=== PATIENT | male | born 1975 | race Caucasian/White ===

== ENCOUNTER → 2022-05-13 08:46 | Outpatient (BNVA) | payer OTHER, SELFPAY | PROVIDERS: PCP Nurse Practitioner Family; Visit Provider Student in an Organized Health Care Education/Training Program | DX: Z13.89 Encounter for screening for other disorder (principal) ==

== ENCOUNTER 2022-10-21 10:10 | Outpatient (AMB) | payer OTHER, SELFPAY ==
[2022-10-21 10:12] VITALS: BP 164/88; PULSE 92; TEMP 36.1; O2SAT 98; BMI 38.5
--- NOTE | 2022-10-21 10:12 | MHC.OFFVIS ---
Intake Vital Signs 10/21/22 10:12 Height 6 ft 4 in Weight 316 lb 2.286 oz BMI 38.5 BP 164/88 H Blood Pressure Location Rt brachial Position Sitting Pulse 92 Pulse Source Pulse Oximeter Temp 97.0 F Temp Source Skin Pulse Oximetry (%) 98 Intake Visit Reasons: [place]ca Intake Note: Pt seen today for follow up. Inspector Filters Required: No Accompanied by: Spouse Allergies Sulfa (Sulfonamide Antibiotics) Allergy (Severe, Verified 10/21/22 10:14) Rash omeprazole Adverse Reaction (Verified 10/21/22 10:14) Rash Medication List - Last Reconciled 10/21/22 by Arnoldo Cole MD ipratropium bromide 2 sprays intranasal TID multivitamin 1 tab PO DAILY HPI HPI Comments History of Present Illness Details Patient returns for follow-up after completion of his blood work. He was evaluated by ENT and was told he has a deviated septum, he was also or referred for a sleep study. A lip biopsy was not pursued as patient had negative Sjogren's antibodies. Patient stated that he started taking vitamins and he feels that the dry mouth is improving. He rarely gets any dry eyes recently. Continues to get fatigue and intermittent joint and body aches P Initial history: This is a 46-year-old male with past medical history of varicose veins who presents for evaluation of fatigue, dry eyes, dry mouth and a positive DARON. Patient states that he has had fatigue for years is in dryness for years. For his dry eye he uses a humidifier and used artificial tears for some time with some improvement. Does not use artificial tears currently. Continues to have dry mouth for years. Denies any significant joint pain. No known family history of autoimmune rheumatic disease. No history of DVT/PE. [facility] Medical History Edema of lower extremity Essential hypertension Obesity Varicose veins of both legs with edema Surgical History Status post ablation of incompetent vein using laser Family History Paternal Grandmother Malignant neoplasm of uterus Father Malignant lymphoma Mother Malignant tumor of breast Social History Household Members: Spouse Alcohol intake: never Patient Tobacco Use Status: Never used Tobacco Current occupational status: employed Current occupation: [employer] Systems Const Reports fatigue ENT Reports dry mouth Musc Reports arthralgias Endo Reports fatigue Physical Exam Vital Signs: Last Vital Signs Temp 97.0 F 10/21/22 10:12 Pulse 92 10/21/22 10:12 BP 164/88 H 10/21/22 10:12 Pulse Ox 98 10/21/22 10:12 BMI result Body Mass Index 38.5 Const General: cooperative, healthy appearing and comfortable Nutritional Appearance: obese Orientation/consciousness: patient oriented x3 Limitations: no limitations HEENT Other: Mildly Oral mucosa Head: Yes normocephalic and Yes atraumatic Resp Effort & Inspection: normal respiratory effort and able to speak in complete sentences GI Inspection: No distended Palpation (GI): Soft to palpation and nontender Skin General skin exam: no rashes or lesions noted Neuro General: patient oriented x3 Extrem Other: No active synovitis Normal nailfold capillaroscopy Results Reviewed Results Reviewed: Labs 06/08? ACL IgG, IgM/B2GP IgM, IgG/SSA/SSB/Treviño/[employer]OM[employer]/Scl 70/Jo1/ thyroglobulin antibody/TPO/dsDNA/lupus anticoagulant all -ve/nl JUDE nl SPEP normal Assessment & Plan Assessment & Plan (1) DARON positive: Code(s): R76.8 - Other specified abnormal immunological findings in serum Plan: This is a 46-year-old male who is referred for evaluation of fatigue, sicca symptoms and positive DARON 1-160 homogeneous. I do not see any signs suggestive of autoimmune rheumatic disease upon my evaluation. Comprehensive serology is negative. Patient was evaluated by ENT. A lip biopsy was not pursued. He was told he has a deviated septum and is being referred for a sleep study to rule out obstructive sleep apnea. Follow-up as needed Plan I spent 18 minutes reviewing patient's chart, evaluating patient, ordering diagnostic workup, counseling patient and documenting in the chart Coding Level of Care Code Est Pt Level 3 (66640) Diagnoses DARON positive R76.8
== END 2022-10-21 10:44 | disposition home or self-care (01) ==
PROVIDERS: PCP Nurse Practitioner Family; Visit Provider Student in an Organized Health Care Education/Training Program
DX: R76.8 Other specified abnormal immunological findings in serum (principal)
CPT/HCPCS: 99213

== ENCOUNTER → 2022-10-21 10:10 | Outpatient (BNVA) | payer OTHER, SELFPAY | PROVIDERS: PCP Nurse Practitioner Family; Visit Provider Student in an Organized Health Care Education/Training Program ==